=== PATIENT | male | born 1985 | race Caucasian/White ===

== ENCOUNTER 2025-05-19 05:01 | Emergency (ER) | payer OTHER, SELFPAY ==
[2025-05-19 05:03] VITALS: BMI 38.5
[2025-05-19 05:18] VITALS: BP 163/119; BP 170/117; PULSE 93; RESP 18; TEMP 36.9; O2SAT 98
[2025-05-19 05:53] VITALS: BP 165/115; PULSE 88
[2025-05-19] MEDS: HYDROcodone/APAP 5/325 TABLET 1 TAB PO (05:53)
[2025-05-19] MEDS: DEXAMETHASONE SOD PHOS INJ 10 MG/ML VIAL IM (05:53)
[2025-05-19] MEDS: KETOROLAC INJ 60 MG/2 ML VIAL IM (05:54)
--- NOTE | 2025-05-24 19:24 | EDNOTE_ITS ---
ED Back Injury Pain RME/HPI General Chief Complaint: Back Pain/Injury Stated Complaint: LOW BACK PAIN ACUTE OON CHRONIC Time Seen by Provider: 05/19/25 05:15 Arrival date/time: 05/19/25 05:01 This is a case of 39-year-old male with history of chronic low back pain came in in the emergency room due to low back pain today after waking up patient denies any injury or trauma denies any numbness weakness tingling sensation or incontinence to urine or stool Limitations: no limitations Related Data Previous Rx's ?Medication ?Instructions ?Recorded baclofen 10 mg tablet 10 mg PO BID PRN muscle spas m #10 05/19/25 tabs lidocaine 5 % topical patch 1 patch topical QDAY #15 e a 05/19/25 (Lidoderm) tramadol 50 mg tablet 50 mg PO BID PRN pain #20 ta bs 05/19/25 Allergies Allergy/AdvReac Type Severity Reaction Status Date / Time No Known Allergies Allergy Verified 05/19/25 05:09 Review of Systems Review of Systems Systems Reviewed: All systems reviewed, normal except as documented Constitutional Constitutional: Reports system reviewed and no additional complaints, except as documented and Reports as per HPI Cardiovascular Cardiovascular: Reports system reviewed and no additional complaints, except as documented and Reports as per HPI Respiratory Respiratory: Reports system reviewed and no additional complaints, except as documented and Reports as per HPI Gastrointestinal Gastrointestinal: Reports system reviewed and no additional complaints, except as documented and Reports as per HPI Musculoskeletal Musculoskeletal: Reports system reviewed and no additional complaints, except as documented and Reports as per HPI Neurologic Neurologic: Reports system reviewed and no additional complaints, except as documented and Reports as per HPI Past Medical History Social History SMOKING STATUS: Never smoker ED Exam General Limitations: Present no limitations General appearance: Present alert and in no apparent distress Head Head exam: Present atraumatic Eye Eye exam: Present normal appearance, PERRL, EOMI and other (Patient is awake alert oriented not in distress nontoxic looking well-hydrated well-nourished) ENT ENT exam: Present normal exam, normal oropharynx and mucous membranes moist Neck Neck exam: Present normal inspection, full ROM and trachea midline; Absent tenderness, meningismus or lymphadenopathy Chest Chest inspection: Present normal inspection and symmetric chest wall rise; Absent tenderness Respiratory Respiratory exam: Present normal lung sounds bilaterally; Absent respiratory distress, wheezes, stridor, accessory muscle use or prolonged expiratory phase Cardiovascular Cardiovascular exam: Present regular rate, normal rhythm and normal heart sounds; Absent bradycardia, tachycardia, irregular rhythm, systolic murmur or diastolic murmur Abdominal Exam Abdominal exam: Present soft and normal bowel sounds; Absent distention, tenderness, guarding, rebound, rigidity, diminished bowel sounds, hyperactive bowel sounds, hypoactive bowel sounds or organomegaly Extremities Exam Extremities exam: Present normal inspection and full ROM Back Exam Back exam: Present normal inspection, full ROM and tenderness (Tenderness on the L1 L5); Absent CVA tenderness (R), CVA tenderness (L), muscle spasm, paraspinal tenderness, vertebral tenderness, sciatic notch tenderness (R), sciatic notch tenderness (L), straight leg raise (R) or straight leg raise (L) Neurological Exam Neurological exam: Present alert, oriented X3, CN II-XII intact, normal gait and reflexes normal; Absent motor sensory deficit Psychiatric Psychiatric exam: Present normal affect and normal mood Skin Skin exam: Present warm, dry, intact and normal color Course Quality Measures none Orders Category Date Time Status Dexamethasone Inj [Decadron Inj] Med 05/19/25 05:19 Discontinued 10 mg IM X1 ONE HYDROcodone*/APAP 5/325 [Logan 5/325] Med 05/19/25 05:19 Discontinued 1 tab PO X1 ONE Ketorolac Inj [Toradol Inj] Med 05/19/25 05:19 Discontinued 60 mg IM X1 ONE cloNIDine HCL [Catapres] Med 05/19/25 05:23 Discontinued 0.1 mg PO X1 ONE Vital Signs Vital signs: Vital Signs Temperature 98.5 F 05/19/25 05:18 Pulse Rate 93 05/19/25 05:18 Respiratory Rate 18 05/19/25 05:18 Blood Pressure 163/119 H 05/19/25 05:18 Pulse Oximetry (%) 98 05/19/25 05:18 Oxygen Delivery Method Room Air 05/19/25 05:18 Oxygen saturation is 98% Back Pain / Injury MDM Narrative MDM Narrative:: This is a case of 39-year-old male with history of chronic low back pain came in in the emergency room due to low back pain today after waking up patient denies any injury or trauma denies any numbness weakness tingling sensation or incontinence to urine or stool patient is awake alert oriented not in distress nontoxic looking well-hydrated well-nourished noted mild to moderate tenderness on the L1-L5 but no crepitation no deformity no redness no swelling no p araspinal no paravertebral tenderness ROM intact neurovascular intact leg raise exam is normal no CVA tenderness steady gait no signs and symptoms of cauda equina patient was given Toradol and dexamethasone which patient condition markedly improved patient was discharged with tramadol Lidoderm patch and muscle relaxant patient will follow-up with neurosurgeon for his chronic low back pain and pain management doctor for pain control for any worsening symptoms or any emergent concern return precaution in the ER is advised Patient was discharged with comfortable condition walking with stable gait. Patient verbalized no further complains explained diagnosis and answered patient question. Patient is comfortable with the proposed management plan including the need to follow up with his/her primary care physician and any specialist if applicable Discussed patient for any urgent condition or worsening sx, He/She needed to go to emergency room immediately or call 911. Patient acknowledge the responsibility to follow up as instructed and to monitor her/his symptoms. For any persistence of the symptoms for more than 3-5 days return precaution advised. Discussed the result of the test and was given printed discharge instruction Patient data External records reviewed:: [facility] previous records Clinical information provided by:: patient Social determinants that could affect healthcare access:: none Patient has the following chronic illnesses:: None How is presenting disease/condition affected by chronic disease/condition?: no chronic disease Evaluation data The following diagnostics were reviewed and interpreted by me:: other (specify) (None) Lab and/or radiology exams considered but not ordered:: None Interpretation Summary: None Medications / Prescriptions Medications or Prescriptions considered but not ordered:: Given Medication administrations:: Medication Administration History Discontinued Medications Hydrocodone Bitart/Acetaminophen (Hydrocodone/Apap 5/325 Tablet) 1 tab PO X1 ONE Stop: 05/19/25 05:20 Last Admin: 05/19/25 05:53 Dose: 1 tab Documented By: UMANG Clonidine (Clonidine Hcl 0.1 Mg Tablet) 0.1 mg PO X1 ONE Stop: 05/19/25 05:24 Last Admin: 05/19/25 05:53 Dose: 0.1 mg Documented By: UMANG Dexamethasone Sodium Phosphate (Dexamethasone Sod Phos Inj 10 Mg/Ml Vial) 10 mg IM X1 ONE Stop: 05/19/25 05:20 Last Admin: 05/19/25 05:53 Dose: 10 mg Documented By: UMANG Ketorolac Tromethamine (Ketorolac Inj 60 Mg/2 Ml Vial) 60 mg IM X1 ONE Stop: 05/19/25 05:20 Last Admin: 05/19/25 05:54 Dose: 60 mg Documented By: MC Given Consultations Consultation(s) initiated? (list below): No Diagnosis Differential diagnosis back pain/injury: sciatica and other (Chronic low back pain) Most likely diagnosis given after review of the tests above:: Chronic low back pain muscle spasm Admission Indicated Admission indicated?: not indicated Explain why admission is indicated or not indicated:: Not indicated Admission Request Was there a request for admission?: No Admission Attestation Admission request attestation: Not indicated Disposition Plan Disposition Plan: Discharge Discharge Attestation Discharge Attestation: The patient and all family members were given an opportunity to ask questions and understood the discharge instructions. Discharge instructions specifically effects, indications for sooner follow up or return to the emergency department, and the expected course of current diagnosis. Patient condition: Stable Discharge Plan Plan Patient Disposition: HOME (Self Care) Patient condition on transfer: Stable Prescriptions/Referrals Prescriptions/Med Rec: New tramadol 50 mg tablet 50 mg PO BID PRN (Reason: pain) Qty: 20 0RF baclofen 10 mg tablet 10 mg PO BID PRN (Reason: muscle spasm) Qty: 10 0RF lidocaine [Lidoderm] 5 % adhesive patch,medicated 1 patch topical QDAY Qty: 15 0RF Rx Instructions: leave on most painful area for up to 12 hrs Problem List Clinical Impression: Chronic low back pain, Muscle spasm Patient/Caregiver Discharge Instructions Education Materials: ED Back Spasm, No Trauma, ED Chronic Pain, ED Muscle Spasm Additional Instructions: Follow-up with your primary care physician in 2 days for reevaluation and to be referred to neurosurgeon for further evaluation and treatment of herniated disc and pain management doctor for pain control worsening symptoms or any emergent concerns such as numbness weakness tingling sensation incontinence to urine or stool call 911 or go to the nearest emergency room ice pack and warm compress as needed for pain Print Language: Occitan Stand Alone Forms: Ibeth Award Info., Patient Portal Info Letter PA/DEHYDRATION UNIT OPERATOR Supervising Physician PA/DEHYDRATION UNIT OPERATOR Supervising Physician: Dr. Kaushik Boucher
== END 2025-05-19 06:18 | disposition home or self-care (01) ==
LOC: SERX 06:21
PROVIDERS: Emergency Provider Emergency Medicine
DX: M62.838 Other muscle spasm (principal); G89.29 Other chronic pain; M54.50 Low back pain, unspecified
CPT/HCPCS: 96372; 99282; J1100; J1885; A9270